=== PATIENT | male | born 1945 | race Caucasian/White ===

== ENCOUNTER 2023-12-04 07:10 | Day surgery (SDC) | payer OTHER ==
[~2023-12-04] VITALS: Ht 172.7 cm; Wt 67.2 kg
[~2023-12-04 07:10] MED LIST: ASPI81CH PO; HYDCHL25 PO; HYDRA25 PO; MELATONIN PO; TAMS.4ER PO
[2023-12-04] MEDS ORDERED: Lactated Ringer's 1,000 ML IV SCH (08:20)
[2023-12-04] MEDS ORDERED: CefOXitin Sodium 2,000 MG in NS 50 ML IV SCH (08:20)
[2023-12-04 08:37] VITALS: BP 139/99
--- NOTE | 2023-12-04 08:44 | NUR ---
Patient States Post-Procedure ride home has been arranged with sonYan.
[2023-12-04] MEDS ORDERED: Bupivacaine 0.5% Inj 10 ML Vial ONE (10:00)
[2023-12-04] MEDS ORDERED: Midazolam HCl 1MG / ML 2ML Vial ONE (10:13)
[2023-12-04] MEDS ORDERED: Rocuronium Bromide 10 MG/ML 5ML Injection IV ONE (10:13)
[2023-12-04] MEDS ORDERED: FentaNYL Citrate 50 MCG/ML 2 ML Injection ONE ×2 (10:13→12:32)
[2023-12-04] MEDS ORDERED: Midazolam HCl 1MG / ML 2ML Vial IV SCH (10:15)
[2023-12-04] MEDS ORDERED: Bupivacaine 0.5% HCl 5 MG/ML 30MLVIAL SC ONE (10:39)
[2023-12-04] MEDS ORDERED: Dexamethasone Sod Phos 10 MG/ML 1ML VIAL ONE (10:53)
[2023-12-04] MEDS ORDERED: Ondansetron HCl 2 MG / ML 2ML Vial ONE (10:53)
[2023-12-04] MEDS ORDERED: Sugammadex Sodium 200 MG/2ML SDV (100 MG/ML) ONE (11:15)
[2023-12-04 11:20] VITALS: BP 94/69
[2023-12-04 11:25] VITALS: BP 92/63
[2023-12-04 11:30] VITALS: BP 98/61
[2023-12-04 11:35] VITALS: BP 103/59
[2023-12-04] MEDS ORDERED: OxyCODONE HCL 5 MG TAB PO ONE (12:30)
[2023-12-04] MEDS ORDERED: FentaNYL Citrate 50 MCG/ML 2 ML Injection IV ONE (12:30)
== END 2023-12-04 22:51 | disposition home or self-care (01) ==
LOC: ORSCMMR 07:10 → ORD 09:00 → ORSCMMR 12:15
PROVIDERS: Surgery
PROC: 0DB84ZZ Excision of Small Intestine, Percutaneous Endoscopic Approach (ICD-10-PCS; principal; 2023-12-04 09:00)
DX: K56.609 Unspecified intestinal obstruction, unspecified as to partial versus complete obstruction (principal); Q43.0 Meckel's diverticulum (displaced) (hypertrophic); K66.0 Peritoneal adhesions (postprocedural) (postinfection); K21.9 Gastro-esophageal reflux disease without esophagitis; I10 Essential (primary) hypertension; N40.0 Benign prostatic hyperplasia without lower urinary tract symptoms; Z79.899 Other long term (current) drug therapy
CPT/HCPCS: 88307; A9270; J0694; J1100; J2250; J2405; J3010; J7120